=== PATIENT | female | born 1965 | race Caucasian/White ===

== ENCOUNTER 2025-09-26 01:47 | Emergency (ER) | payer BC ==
[~2025-09-26] VITALS: Ht 154.9 cm; Wt 62.6 kg
[2025-09-26] MEDS ORDERED: ASPIRIN 81 MG TAB.CHEW ONE (02:15)
[2025-09-26] MEDS ORDERED: NITROGLYCERIN OINT 1 GM PACKET TP ONE (02:16)
[2025-09-26] MEDS ORDERED: DIAZEPAM 2 MG TABLET ONE ×2 (02:16→03:34)
[2025-09-26 02:20] LABS: PLATELET COUNT (AUTO) 234 K/uL (179-408); RED BLOOD CELL COUNT(AUTO) 4.84 MIL/uL (3.63-4.92); RED CELL DISTRIBUTION WIDTH 13.4 % (12.3-17.7); WHITE BLOOD COUNT (AUTO) 12.0 K/uL (3.8-11.8)
[2025-09-26] MEDS: ASPIRIN 81 MG TAB.CHEW PO ONE (02:25)
[2025-09-26] MEDS: DIAZEPAM 2 MG TABLET PO ONE ×2 (02:25→03:37)
[2025-09-26] MEDS: NITROGLYCERIN OINT 1 GM PACKET TP ONE (02:25)
[2025-09-26 02:26] LABS: CREATININE 0.6 mg/dL (0.6-1.3); SODIUM SERUM 137 mmol/L (136-145); UREA NITROGEN, BLOOD 11 mg/dL (7-18)
[2025-09-26] MEDS ORDERED: PARO-154 PO (02:30)
[2025-09-26] MEDS ORDERED: OLME5TAB3 PO (02:30)
[2025-09-26] MEDS ORDERED: PRAV10TA38 PO (02:30)
[2025-09-26 02:33] LABS: ASPARTATE AMINOTRANSFERASE 18 U/L (15-37); TOTAL PROTEIN, SERUM 7.6 g/dL (6.4-8.2)
[2025-09-26] MEDS ORDERED: ACETAMINOPHEN 500 MG TABLET ONE (03:34)
[2025-09-26] MEDS ORDERED: DIAZ5TAB4 PO (03:35)
[2025-09-26] MEDS: ACETAMINOPHEN 500 MG TABLET PO ONE (03:38)
[2025-09-26 03:39] VITALS: BP 132/78
[2025-09-26 04:46] VITALS: BP 121/71; TEMP 98.1; O2SAT 99
== END 2025-09-26 04:46 | disposition home or self-care (01) ==
LOC: ER 02:04
DX: F41.0 Panic disorder [episodic paroxysmal anxiety] (principal); F32.A Depression, unspecified; R07.9 Chest pain, unspecified; I11.9 Hypertensive heart disease without heart failure; R06.02 Shortness of breath; R51.9 Headache, unspecified; E78.5 Hyperlipidemia, unspecified; Z86.711 Personal history of pulmonary embolism; Z88.2 Allergy status to sulfonamides; Z79.899 Other long term (current) drug therapy
CPT/HCPCS: 36415; 71045; 84484; 85025; A4606; A4663; A9150